=== PATIENT | male | born 1955 | race Caucasian/White ===

== ENCOUNTER 2021-01-28 18:13 | Emergency (ER) | payer OTHER ==
[~2021-01-28] VITALS: Ht 188 cm; Wt 96.9 kg
[2021-01-28] MEDS ORDERED: PERCOCET 5-3251 EACH PO (20:35)
[2021-01-28] MEDS ORDERED: ELIQUIS5 M1 PO (20:35)
--- NOTE | 2021-01-28 22:00 | NUR ---
EKG DONE AT 2014.
--- NOTE | 2021-01-30 18:50 | EKG ---
[facility] [address] [place], [place] [address] Signed Normal sinus rhythm Normal ECG No previous ECGs available Confirmed by BEAR OSCAR DO ([id number]) on 01/30/2021 6:50:47 PM Electronically Signed By: BEAR OSCAR DO 01/30/211849 PATIENT NAME: JULIO CAGE JANNIE Electrocardiogram DATE OF : 55 PHYSICIAN: BEAR OSCAR DO REPORT #: [id number] REPORT IS CONFIDENTIAL AND NOT TO BE RELEASED WITHOUT AUTHORIZATION
== END 2021-01-28 20:55 | disposition home or self-care (01) ==
LOC: ED 18:13
DX: I26.99 Other pulmonary embolism without acute cor pulmonale (principal); Z20.822 Contact with and (suspected) exposure to COVID-19
CPT/HCPCS: 71045; 71260; 80053; 81001; 85025; 93005; 93010; 96374; 99284-25; C9803; J1885; Q9967; U0003

== ENCOUNTER 2021-10-14 21:26 | Emergency (ER) | payer OTHER ==
[~2021-10-14] VITALS: Ht 188 cm; Wt 94.1 kg
[~2021-10-14 21:26] MED LIST: ELIQUIS5 M1 PO; PERCOCET 5-3251 EACH PO
[2021-10-14] MEDS ORDERED: HYDROCODON-ACE1 EA10 PO (23:28)
== END 2021-10-15 00:01 | disposition home or self-care (01) ==
LOC: ED 21:26
DX: S22.31XA Fracture of one rib, right side, initial encounter for closed fracture (principal); W01.10XA Fall on same level from slipping, tripping and stumbling with subsequent striking against unspecified object, initial encounter; Z79.899 Other long term (current) drug therapy
CPT/HCPCS: 71101; 81001; 99283-25; A9270

== ENCOUNTER 2024-12-05 11:07 | Day surgery (SDC) | payer MEDICARE, OTHER ==
[~2024-12-05] VITALS: Ht 188 cm; Wt 84.5 kg
[~2024-12-05 11:07] MED LIST changes: +HYDROCODON-ACE1 EA10 PO; +IBLOOD GLUCOSE TEST STRIP 1 EA TEST VI PRN; +LACTATED RINGER'S 1,000 ML IV SCH; +LIDOCAINE HCL 1% 5 ML SDV INJ ONE; +MIDAZOLAM HCL 5 MG/5 ML VIAL IV PRN; +fentaNYL citrate 100 MCG/2 ML VIAL IV PRN
[2024-12-05 11:27] VITALS: BP 158/83
[2024-12-05] MEDS ORDERED: ALLERGY REL5 MG/5 ML PO (11:32)
[2024-12-05] MEDS ORDERED: MELATONINMAX10 MG PO (11:32)
[2024-12-05] MEDS ORDERED: TYLENOL EXTRA500 MG PO (11:33)
[2024-12-05] MEDS ORDERED: fentaNYL citrate 100 MCG/2 ML VIAL ONE (11:35)
[2024-12-05] MEDS ORDERED: MIDAZOLAM HCL 5 MG/5 ML VIAL ONE (11:35)
--- NOTE | 2024-12-05 12:37 | NUR ---
12/05/24 Kali7 Myranda Gray 1233-PATIENT ARRIVED TO PACU ON 2L NC RR EVEN. PATIENT AWAKE LAYING LEFT LATERAL ABDOMEN SOFT IVF INFUSING. ENCOURAGED TO PASS GAS. SR HR 60'S.
[2024-12-05 13:09] VITALS: BP 119/78
--- NOTE | 2024-12-05 19:47 | OR ---
[facility] [address] [place], [place] [address] Signed DATE OF OPERATION: 12/05/2024 SURGEON: Rigo Souza MD PREOPERATIVE DIAGNOSIS: Colon screening. POSTOPERATIVE DIAGNOSIS: Sigmoid diverticulosis. PROCEDURE: Total colonoscopy to cecum. ANESTHESIA: Intravenous sedation, fentanyl 100 mcg, Versed 6 mg. INDICATION: This 68-year-old white man is a patient of Dr. Barillas, who last underwent colonoscopy in [place] many years ago probably more than 10. He does not think there were any polyps or other abnormalities at that time. He is currently symptom free having no bleeding diarrhea or constipation. He does have family history of colon cancer in a paternal grandmother. He is admitted to undergo screening colonoscopy at this time. He understands the risk of bleeding, infection, and perforation. FINDINGS: The prep was excellent. Complete colonoscopy was undertaken of the cecum with full intubation of the cecum. He had a number of small diverticula of the sigmoid, but the remaining colon was normal. There were no polyps. DESCRIPTION OF PROCEDURE: The patient was brought to the endoscopy suite and placed in lateral decubitus position, given intravenous sedation to the point of slurred speech and nystagmus with full cardiopulmonary monitoring. Digital rectal examination was normal. An Olympus video colonoscope was passed in the rectum and manipulated throughout the colon ultimately intubating the cecum itself. The ileocecal valve and appendiceal orifice were normal. The scope was withdrawn from that point. Examination showed no sign of abnormality other than diverticula of the sigmoid colon. The retroflexed view was normal as well. The scope was removed. The patient was taken to the recovery room in good condition. Electronically Signed By: RIGO SOUZA MD 12/05/241946 PATIENT NAME: JULIO CAGE OPERATIVE REPORT DATE OF : 55 REPORT #: [id number] PHYSICIAN: RIGO SOUZA MD PCP: JORGITO BARILLAS MD REPORT IS CONFIDENTIAL AND NOT TO BE RELEASED WITHOUT AUTHORIZATION [facility] [address] [facility] [place], [place] [address] Signed CONCLUDING DIAGNOSIS: Diverticulosis. No sign of polyp. PLAN: Recommend repeat colonoscopy in 10 years, and recommend high-fiber diet as well. He will return to the ongoing care of Dr. Jorgito Barillas. MD RAYSA Overton/DMITRIL /[id number] cc: Jorgito Barillas MD Copies: JORGITO BARILLAS MD ~ Electronically Signed By: RIGO SOUZA MD 12/05/24 1947 PATIENT NAME: JULIO CAGE OPERATIVE REPORT DATE OF : 55 REPORT #: [id number] PHYSICIAN: RIGO SOUZA MD PCP: JORGITO BARILLAS MD REPORT IS CONFIDENTIAL AND NOT TO BE RELEASED WITHOUT AUTHORIZATION
== END 2024-12-05 13:15 | disposition home or self-care (01) ==
LOC: OPS 11:07 → DS 11:07 → OPS 12:00
PROVIDERS: ATTEND Surgery
PROC: 0DJD8ZZ Inspection of Lower Intestinal Tract, Via Natural or Artificial Opening Endoscopic (ICD-10-PCS; principal; 2024-12-05 12:00)
DX: Z12.11 Encounter for screening for malignant neoplasm of colon (principal); K57.30 Diverticulosis of large intestine without perforation or abscess without bleeding; Z80.0 Family history of malignant neoplasm of digestive organs; Z88.0 Allergy status to penicillin
CPT/HCPCS: 99153; G0500; J2250; J3010